=== PATIENT | male | born 1970 | race Caucasian/White ===

== ENCOUNTER 2017-08-07 21:10 | Emergency (ER) | payer MEDICAID ==
[2017-08-07 21:16] VITALS: BP 101/71
== END 2017-08-07 21:47 | disposition left against medical advice (07) ==
DX: Z53.21 Procedure and treatment not carried out due to patient leaving prior to being seen by health care provider (principal)

== ENCOUNTER 2018-01-04 19:27 | Emergency (ER) | payer MEDICAID, OTHER ==
--- NOTE | 2018-01-04 19:33 | EDPHY ---
H & P Time Seen by Provider: 01/04/18 19:32 HPI/ROS: CHIEF COMPLAINT: Alcohol intoxication with request for detox HISTORY OF PRESENT ILLNESS: 47-year-old male with history of alcoholism well known to this emergency room here with request for transfer to alcohol detox. He states he has been drinking "2 5ths of alcohol daily" and his last drink was early this afternoon and he feels that he is starting to go through withdrawals. He states he has had withdrawal seizures before. He also admits to methamphetamine abuse. States he has not had anything to drink in 2-3 days. He is homeless. Denies any vomiting, blood in his stool, chest pain, shortness of breath additionally he denies syncope. Does state that he has been thinking of hurting himself the but denies any plan. REVIEW OF SYSTEMS: Constitutional: No fever, no chills. Eyes: No discharge. ENT: No sore throat. Cardiovascular: No chest pain, no palpitations. Respiratory: No cough, no shortness of breath. Gastrointestinal: No abdominal pain, no vomiting. Genitourinary: No hematuria. Musculoskeletal: No back pain. Skin: No rashes. Neurological: No headache. Smoking Status: Current every day smoker Physical Exam: General Appearance: Alert and no distress. Eyes: Pupils equal and round no injection. Respiratory: Chest is nontender, lungs are clear to auscultation. Cardiac: regular rate and rhythm. Gastrointestinal: Abdomen is soft and nontender, no masses, bowel sounds normal. Musculoskeletal: Neck is supple and nontender. Extremities have full range of motion and are nontender. Skin: No rashes or lesions. Constitutional: Initial Vital Signs Temperature (C) 36.8 C 01/04/18 19:34 Heart Rate 94 01/04/18 19:34 Respiratory Rate 18 01/04/18 19:34 Blood Pressure 119/82 H 01/04/18 19:34 O2 Sat (%) 94 01/04/18 19:34 O2 Delivery Mode Room Air Allergies/Adverse Reactions: codeine Allergy (Verified 01/04/18 19:36) Home Medications: Medication Instructions Recorded Dilantin 01/04/18 Klonopin 01/04/18 traZODone 01/04/18 Medical Decision Making ED Course/Re-evaluation: 47-year-old male here requesting transfer to detox. He is intoxicated with blood alcohol 288. There is no evidence of respiratory depression or altered mentation. He is ambulating without difficulty. He did report that he was feeling depressed and has thoughts of hurting himself. He was seen by mental health and cleared for detox at the [facility]. Differential Diagnosis: Suicidal ideation, homicidal ideation, alcohol withdrawal, hypo magnesium - Data Points Laboratory Results: Laboratory Results 01/04/18 20:13 01/04/18 20:13 01/04/18 01/04/18 01/04/18 20:13 20:13 19:33 WBC 5.86 10^3/uL 10^3/uL (3.80-9.50) RBC 4.66 10^6/uL 10^6/uL (4.40-6.38) Hgb 15.9 g/dL g/dL (13.7-17.5) Hct 45.5 % % (40.0-51.0) MCV 97.6 fL fL (81.5-99.8) MCH 34.1 pg pg (27.9-34.1) MCHC 34.9 g/dL g/dL (32.4-36.7) RDW 13.4 % % (11.5-15.2) Plt Count 292 10^3/uL 10^3/uL (150-400) MPV 9.5 fL fL (8.7-11.7) Neut % (Auto) 33.8 % L % (39.3-74.2) Lymph % (Auto) 48.1 % H % (15.0-45.0) [place] % (Auto) 6.1 % % (4.5-13.0) Eos % (Auto) 10.8 % H % (0.6-7.6) Baso % (Auto) 0.9 % % (0.3-1.7) Nucleat RBC Rel Count 0.0 % % (0.0-0.2) Absolute Neuts (auto) 1.98 10^3/uL 10^3/uL (1.70-6.50) Absolute Lymphs (auto) 2.82 10^3/uL 10^3/uL (1.00-3.00) Absolute Monos (auto) 0.36 10^3/uL 10^3/uL (0.30-0.80) Absolute Eos (auto) 0.63 10^3/uL H 10^3/uL (0.03-0.40) Absolute Basos (auto) 0.05 10^3/uL 10^3/uL (0.02-0.10) Absolute Nucleated RBC 0.00 10^3/uL 10^3/uL (0-0.01) Immature Gran % 0.3 % % (0.0-1.1) Immature Gran # 0.02 10^3/uL 10^3/uL (0.00-0.10) Sodium 145 mEq/L mEq/L (135-145) Potassium 4.0 mEq/L mEq/L (3.3-5.0) Chloride 105 mEq/L mEq/L (97-110) Carbon Dioxide 27 mEq/l mEq/l (22-31) Anion Gap 13 mEq/L mEq/L (6-14) BUN 12 mg/dL mg/dL (7-23) Creatinine 0.9 mg/dL mg/dL (0.7-1.3) Estimated GFR > 60 Glucose 93 mg/dL mg/dL (70-100) Calcium 9.2 mg/dL mg/dL (8.5-10.4) Salicylates < 1.0 mg/dL L mg/dL (2.0-20.0) Urine Opiates Screen NEGATIVE (NEGATIVE) Acetaminophen < 10 mcg/mL L mcg/mL (10-30) Urine Barbiturates NEGATIVE (NEGATIVE) Ur Phencyclidine Scrn NEGATIVE (NEGATIVE) Ur Amphetamine Screen NON-NEGATIVE H (NEGATIVE) U Benzodiazepines Scrn NEGATIVE (NEGATIVE) Urine Cocaine Screen NEGATIVE (NEGATIVE) U Marijuana (THC) Screen NON-NEGATIVE H (NEGATIVE) Ethyl Alcohol 288 mg/dL H mg/dL (0-10) Medications Given: Discontinued Medications Lorazepam (Ativan) 1 mg PO EDNOW ONE Stop: 01/04/18 19:41 Last Admin: 01/04/18 20:20 Dose: 1 mg Departure - Departure Disposition: Other Psych, Not [place] Clinical Impression: Alcohol intoxication, Alcoholism, Depression, Methamphetamine abuse Condition: Good Instructions: Alcohol Withdrawal (ED) Additional Instructions: Please follow up with outpatient alcohol detox or rehab as discussed this evening. Referrals: Patient,NotPresent [Unknown] - As per Instructions [facility],. [Clinic] - As per Instructions
[2018-01-04] MEDS ORDERED: LORazepam 1 MG TAB PO ONE (19:40)
[2018-01-04 20:22] LABS: PLATELET COUNT 292 10^3/uL (150-400)
[2018-01-04] MEDS ORDERED: CHLORDIAZEPOXIDE 25MG PREPK#6 BTL TAKEHOME ONE (21:05)
[2018-01-04 21:44] VITALS: BP 93/56
== END 2018-01-04 22:43 ==
LOC: EDUNIT#
DX: F10.220 Alcohol dependence with intoxication, uncomplicated (principal); F32.9 Major depressive disorder, single episode, unspecified; F15.10 Other stimulant abuse, uncomplicated; Y90.8 Blood alcohol level of 240 mg/100 ml or more; Z59.0 Homelessness
CPT/HCPCS: 80305; G0480

== ENCOUNTER 2018-01-18 00:10 | Emergency (ER) | payer MEDICAID ==
[2018-01-18] MEDS ORDERED: ONDANSETRON 4 MG/2 ML VIAL IVP ONE (00:12)
[2018-01-18] MEDS ORDERED: NS 1,000 ML IV ONE (00:12)
[2018-01-18] MEDS ORDERED: KETOROLAC 30 MG/1 ML SDV IVP ONE (00:12)
--- NOTE | 2018-01-18 00:27 | EDPHY ---
H & P Time Seen by Provider: 01/18/18 00:13 HPI/ROS: CHIEF COMPLAINT: Right CVA pain HISTORY OF PRESENT ILLNESS: Patient is a 39-year-old homeless man who comes to the emergency department complaining of right-sided CVA pain for the last 4 days. He denies dysuria or hematuria. No fevers. No trauma. He states that it began gradually and has increased. He has had nausea but no vomiting. No diarrhea. Never had pain like this before. No chest pain or shortness of breath. No abdominal pain. No groin pain. Severity: Severe Modifying factors: Hurts worse with movement or palpation. REVIEW OF SYSTEMS: Constitutional: denies: chills, fever, recent illness, recent injury EENTM: denies: blurred vision, double vision, nose congestion Respiratory: denies: cough, shortness of breath Cardiac: denies: chest pain, irregular heart rate, lightheadedness, palpitations Gastrointestinal/Abdominal: denies: abdominal pain, diarrhea, nausea, vomiting, blood streaked stools Genitourinary: denies: dysuria, frequency, hematuria, pain Musculoskeletal: See HPI Skin: denies: lesions, rash, jaundice, bruising Neurological: denies: headache, numbness, paresthesia, tingling, dizziness, weakness Hematologic/Lymphatic: denies: blood clots, easy bleeding, easy bruising Immunologic/allergic: denies: HIV/AIDS, transplant 10 systems reviewed and negative except as noted EXAM: GENERAL: Well-appearing, well-nourished and in no acute distress. HEAD: Atraumatic, normocephalic. EYES: Pupils equal round and reactive to light, extraocular movements intact, sclera anicteric, conjunctiva are normal. ENT: TMs normal, nares patent, oropharynx clear without exudates. Moist mucous membranes. NECK: Normal range of motion, supple without lymphadenopathy or JVD. LUNGS: Breath sounds clear to auscultation bilaterally and equal. No wheezes rales or rhonchi. HEART: Regular rate and rhythm without murmurs, rubs or gallops. ABDOMEN: Soft, nontender, normoactive bowel sounds. No guarding, no rebound. No masses appreciated. BACK: Right-sided CVA tenderness, no erythema or warmth, no spinal tenderness, step-offs or deformities EXTREMITIES: Normal range of motion, no pitting or edema. No clubbing or cyanosis. NEUROLOGICAL: Cranial nerves II through XII grossly intact. Normal speech, normal gait. 5/5 strength, normal movement in all extremities, normal sensation , normal reflexes PSYCH: Normal mood, normal affect. SKIN: Warm, dry, normal turgor, no visible rashes or lesions. Source: Patient Exam Limitations: No limitations - Personal History Tetanus Vaccine Date: < 10 years - Medical/Surgical History Hx Asthma: No Hx Chronic Respiratory Disease: No Hx Diabetes: No Hx Cardiac Disease: No Hx Renal Disease: No Hx Cirrhosis: No Hx Alcoholism: Yes Hx HIV/AIDS: No Hx Splenectomy or Spleen Trauma: No Other PMH: schizophrenia, ETOH abuse, anxiety, right arm surgery, pancreatitis, sz - Social History Smoking Status: Current every day smoker Constitutional: Initial Vital Signs Temperature (C) 36.8 C 01/18/18 00:12 Heart Rate 108 H 01/18/18 00:12 Respiratory Rate 22 H 01/18/18 00:12 Blood Pressure 117/86 H 01/18/18 00:12 O2 Sat (%) 94 01/18/18 00:12 O2 Delivery Mode Room Air Allergies/Adverse Reactions: codeine Allergy (Verified 01/18/18 00:12) Home Medications: Medication Instructions Recorded Dilantin 01/04/18 Klonopin 01/04/18 traZODone 01/04/18 Medical Decision Making - Diagnostics Imaging: Discussed imaging studies w/ call worker Radiologist ED Course/Re-evaluation: Patient's CT and lab work is reassuring. He is eating here and drinking water. His symptoms have improved. No obvious source of his pain. Likely musculoskeletal. I encouraged anti-inflammatories. I will give him a dose of Toradol. Differential Diagnosis: Partial list of the Differential diagnosis considered include but were not limited to; kidney stone, urinary tract infection, muscle strain and although unlikely based on the history and physical exam, I also considered PE, rib fracture, acute coronary disease, appendicitis. I discussed these differential diagnoses and the plan with the patient as well as the usual and expected course. The patient understands that the diagnosis is provisional and that in medicine we are not always correct and that further workup is often warranted. Usual and customary warnings were given. All of the patient's questions were answered. The patient was instructed to return to the emergency department should the symptoms at all worsen or return, otherwise to followup with the physician as we discussed. - Data Points Laboratory Results: Laboratory Results 01/18/18 00:22 01/18/18 00:22 01/18/18 01/18/18 01/18/18 02:25 00:22 00:22 WBC 7.81 10^3/uL 10^3/uL (3.80-9.50) RBC 4.93 10^6/uL 10^6/uL (4.40-6.38) Hgb 16.4 g/dL g/dL (13.7-17.5) Hct 49.0 % % (40.0-51.0) MCV 99.4 fL fL (81.5-99.8) MCH 33.3 pg pg (27.9-34.1) MCHC 33.5 g/dL g/dL (32.4-36.7) RDW 13.0 % % (11.5-15.2) Plt Count 413 10^3/uL H 10^3/uL (150-400) MPV 9.5 fL fL (8.7-11.7) Neut % (Auto) 36.3 % L % (39.3-74.2) Lymph % (Auto) 53.1 % H % (15.0-45.0) [place] % (Auto) 6.4 % % (4.5-13.0) Eos % (Auto) 2.7 % % (0.6-7.6) Baso % (Auto) 1.0 % % (0.3-1.7) Nucleat RBC Rel Count 0.0 % % (0.0-0.2) Absolute Neuts (auto) 2.83 10^3/uL 10^3/uL (1.70-6.50) Absolute Lymphs (auto) 4.15 10^3/uL H 10^3/uL (1.00-3.00) Absolute Monos (auto) 0.50 10^3/uL 10^3/uL (0.30-0.80) Absolute Eos (auto) 0.21 10^3/uL 10^3/uL (0.03-0.40) Absolute Basos (auto) 0.08 10^3/uL 10^3/uL (0.02-0.10) Absolute Nucleated RBC 0.00 10^3/uL 10^3/uL (0-0.01) Immature Gran % 0.5 % % (0.0-1.1) Immature Gran # 0.04 10^3/uL 10^3/uL (0.00-0.10) Sodium 146 mEq/L H mEq/L (135-145) Potassium 5.0 mEq/L mEq/L (3.3-5.0) Chloride 108 mEq/L mEq/L (97-110) Carbon Dioxide 28 mEq/l mEq/l (22-31) Anion Gap 10 mEq/L mEq/L (6-14) BUN 19 mg/dL mg/dL (7-23) Creatinine 0.8 mg/dL mg/dL (0.7-1.3) Estimated GFR > 60 Glucose 85 mg/dL mg/dL (70-100) Calcium 9.3 mg/dL mg/dL (8.5-10.4) Total Bilirubin 0.2 mg/dL mg/dL (0.1-1.4) Conjugated Bilirubin 0.2 mg/dL mg/dL (0.0-0.5) Unconjugated Bilirubin 0.0 mg/dL mg/dL (0.0-1.1) AST 23 IU/L IU/L (17-59) ALT 32 IU/L IU/L (21-72) Alkaline Phosphatase 128 IU/L H IU/L (38-126) Total Protein 7.7 g/dL g/dL (6.3-8.2) Albumin 4.7 g/dL g/dL (3.5-5.0) Lipase 66 IU/L IU/L (23-300) Urine Color YELLOW Urine Appearance CLEAR Urine pH 5.0 (5.0-7.5) Ur Specific [place] 1.026 (1.002-1.030) Urine Protein NEGATIVE (NEGATIVE) Urine Ketones NEGATIVE (NEGATIVE) Urine Blood NEGATIVE (NEGATIVE) Urine Nitrate NEGATIVE (NEGATIVE) Urine Bilirubin NEGATIVE (NEGATIVE) Urine Urobilinogen 2.0 EU H EU (0.2-1.0) Ur Leukocyte Esterase NEGATIVE (NEGATIVE) Urine RBC 1-3 /hpf /hpf (0-3) Urine WBC 1-3 /hpf /hpf (0-3) Ur Epithelial Cells TRACE /lpf /lpf (NONE-1+) Hyaline Casts 5-15 /lpf /lpf (0-1) Urine Mucus TRACE /lpf /lpf (NONE-1+) Urine Glucose NEGATIVE (NEGATIVE) Medications Given: Discontinued Medications Sodium Chloride (Ns) 1,000 mls @ 0 mls/hr IV EDNOW ONE; Wide Open PRN Reason: Protocol Stop: 01/18/18 00:13 Last Admin: 01/18/18 00:28 Dose: 1,000 mls Ketorolac Tromethamine (Toradol) 15 mg IVP EDNOW ONE Stop: 01/18/18 00:13 Last Admin: 01/18/18 00:29 Dose: 15 mg Ondansetron HCl (Zofran) 4 mg IVP EDNOW ONE Stop: 01/18/18 00:13 Last Admin: 01/18/18 00:28 Dose: 4 mg Departure - Departure Disposition: Home, Routine, Self-Care Clinical Impression: Low back pain Qualifiers: Chronicity: unspecified Back pain laterality: right Sciatica presence: without sciatica Qualified Code(s): M54.5 - Low back pain Condition: Fair Instructions: Acute Low Back Pain (ED) Referrals: NONE *PRIMARY CARE P,. [Primary Care Provider] - As per Instructions [facility],. [Clinic] - As per Instructions
[2018-01-18 00:42] LABS: PLATELET COUNT 413 10^3/uL (150-400)
[2018-01-18 04:21] VITALS: BP 125/91
== END 2018-01-18 04:23 | disposition home or self-care (01) ==
LOC: EDUNIT#
DX: R10.31 Right lower quadrant pain (principal); M54.5 Low back pain; E86.9 Volume depletion, unspecified; Z59.0 Homelessness; F17.200 Nicotine dependence, unspecified, uncomplicated
CPT/HCPCS: 96374; J1885; J2405